=== PATIENT | female | born 1975 | race Caucasian/White ===

== ENCOUNTER 2018-11-20 06:53 | Inpatient (IN) | payer OTHER, SELFPAY ==
[2018-11-07 08:49] VITALS: BMI 31.6
[2018-11-20] VITALS (17 sets, daily range): BP systolic 111–134; BP diastolic 63–89; PULSE 91–107; RESP 7–17; TEMP 36.1–36.6; O2SAT 94–100; BMI 31.6
[2018-11-20] MEDS: LACTATED RINGERS 1,000 ML 42 ML IV (07:30)
--- NOTE | 2018-11-20 08:34 | PM.PREOP ---
Pre-operative Note Interval Note History & Physical reviewed/Exam performed by Physician: Yes Changes to H&P: No
[2018-11-20] MEDS: CLINDAMYCIN 900 MG/50 ML PIGGYBACK 50 MG IV ×2 (08:52→16:55)
--- NOTE | 2018-11-20 09:14 | SUR.OPER ---
Supine on padded OR bed, head on gel donut, towel roll between shoulder blades vertically, arm padded and tucked at side, legs uncrossed, safety belt at thigh, tape over blanket over lower legs, gel pad under heels.
[2018-11-20] MEDS: BUPIVACAINE 0.25% W/ EPI 30 ML VIAL INJ (09:31)
[2018-11-20] MEDS: ONDANSETRON 4 MG/2 ML INJ IV ×2 (11:35→16:29)
[2018-11-20] MEDS: METOCLOPRAMIDE 10 MG/2 ML INJ IV ×2 (11:42→19:34)
--- NOTE | 2018-11-20 11:43 | PM.OP.1 ---
Operative Date/Time/Diagnoses Date of procedure: 11/20/18 Time of procedure: 08:43 Pre-op diagnosis: 1. C5-6, C6-7, C7-T1 spinal stenosis 2. C5-6, C6-7, C7-T1 spondylosis with radiculopathy Post-op diagnosis: same Procedure & Clinicians Procedure: 1. C5-6, C6-7, C7-T1 anterior cervical diskectomy and fusion 2. C5-6, C6-7, C7-T1 anterior interbody cage placement 3. C5-6, C6-7, C7-T1 anterior instrumentation with plate and screw placement in C5, C6, C7, T1 vertebrae 4. Utilization of microsurgical technique and operating microscope Same procedure as scheduled: Yes Indications: Patient has been having chronic neck pain and worsening cervical radiculopathy. Patient failed multiple conservative management with worsening pain weakness and numbness in her upper extremity. Patient has been having difficulty performing activity of daily living. After discussing risks benefits of treatment options, patient elected proceed with surgery. Surgeon: Molly Peterson Automatic Pilot Mechanic: Shu Esqueda Click Yes if Unassisted: No Anesthesia Type: General Operative Notes Closure Type: primary Specimen(s): none sent Prosthetic devices, grafts, tissues, transplants, or devices: Globus extend plate, PEEK cages Applied: catheter Estimated Blood Loss (mL): 50 Blood products transfused: none Procedure in detail: Patient was seen in the preoperative area. Risks and benefits of the surgery was discussed with the patient. Operative consent was obtained and placed in the chart. Patient was then taken to the operative room. Prophylactic antibiotic was given less than 0.5 hr prior to skin incision. General anesthesia was administered. Patient was placed into a supine position on her radiolucent table. Bilateral shoulders were taped down to allow proper C-arm imaging. Anterior cervical area was prepped and draped in a sterile fashion. Time-out was performed at this time. Using lateral C-arm imaging, the level between C5, C6, C7, T1 was identified and marked on patient's neck. A oblique incision from midline towards medial border of sternocleidomastoid muscle was made. The platysma muscle was incised in line with skin incision. Metzenbaum scissor was used to develop the plane between the medial border of sternocleidomastoid d and the strap muscles medially. The carotid sheath and its contents were identified and protected behind the hand-held retractor during the entire case. The plane between the carotid sheath and strap muscles was developed with Metzenbaum scissors. Dissection was made down to the level of the anterior cervical fascia. Longus colli muscle was incised on the anterior aspect of vertebral bodies bilaterally from C5-T1. Spinal needle was placed into the C6-7 disc space and confirmed with lateral C-arm imaging. Using microsurgical technique and operative microscope, anterior cervical diskectomy was performed at C5-6, C6-7, C7-T1 level. This was done by removing the disc material, removing the anterior and posterior osteophytes posterior longitudinal ligaments along with performing bilateral foraminotomies at all 3 levels. Patient was found to have severe central and foraminal stenosis at all 3 levels. Patient's stenosis was fully decompressed after decompression was completed. After the diskectomy was completed, 3 anterior interbody cages were obtained. The cages were packed with globus via cell bone grafting material. One cage each along with the bone grafting material was then packed into the interbody spaces from C5-6, C6-7, C7-T1 with one cage into each interbody level. After the cages were placed, the anterior cervical plate was stabilized to the C5-6, C6-7, C7-T1 vertebrae using 2 screws at each each level. Total 8 screws were placed. After confirming placement of the hardware with AP and lateral C-arm imaging, the screws were locked into the plate using the locking mechanism and torque limiting screwdriver. After the hardware was placed and confirmed with AP and lateral C-arm imaging, the wound was irrigated with sterile normal saline. The platysma muscle and the subcutaneous tissue was closed with 2-0 Vicryl. The skin was closed with 4-0Monocryl and Steri-Strips. Patient tolerated the procedure well. Patient was transferred recovery room in stable condition. There were no complications. Complications: none Condition: stable Disposition: PACU Plan for aftercare: Admit to inpatient hospital
--- NOTE | 2018-11-20 11:50 | P.OP_ITS ---
Operative Date/Time/Diagnoses Date of procedure: 11/20/18 Time of procedure: 08:43 Pre-op diagnosis: 1. C5-6, C6-7, C7-T1 spinal stenosis 2. C5-6, C6-7, C7-T1 spondylosis with radiculopathy Post-op diagnosis: same Procedure & Clinicians Procedure: 1. C5-6, C6-7, C7-T1 anterior cervical diskectomy and fusion 2. C5-6, C6-7, C7-T1 anterior interbody cage placement 3. C5-6, C6-7, C7-T1 anterior instrumentation with plate and screw placement in C5, C6, C7, T1 vertebrae 4. Utilization of microsurgical technique and operating microscope Same procedure as scheduled: Yes Indications: Patient has been having chronic neck pain and worsening cervical radiculopathy. Patient failed multiple conservative management with worsening pain weakness and numbness in her upper extremity. Patient has been having difficulty performing activity of daily living. After discussing risks benefits of treatment options, patient elected proceed with surgery. Surgeon: Molly Peterson Senior Underwriting Assistant: Shu Esqueda Click Yes if Unassisted: No Anesthesia Type: General Operative Notes Closure Type: primary Specimen(s): none sent Prosthetic devices, grafts, tissues, transplants, or devices: Globus extend plate, PEEK cages Applied: catheter Estimated Blood Loss (mL): 50 Blood products transfused: none Procedure in detail: Patient was seen in the preoperative area. Risks and benefits of the surgery was discussed with the patient. Operative consent was obtained and placed in the chart. Patient was then taken to the operative room. Prophylactic antibiotic was given less than 0.5 hr prior to skin incision. General anesthesia was administered. Patient was placed into a supine position on her radiolucent table. Bilateral shoulders were taped down to allow proper C- arm imaging. Anterior cervical area was prepped and draped in a sterile fashion. Time-out was performed at this time. Using lateral C-arm imaging, the level between C5, C6, C7, T1 was identified and marked on patient's neck. A oblique incision from midline towards medial border of sternocleidomastoid muscle was made. The platysma muscle was incised in line with skin incision. Metzenbaum scissor was used to develop the plane between the medial border of sternocleidomastoid d and the strap muscles medially. The carotid sheath and its contents were identified and protected behind the hand- held retractor during the entire case. The plane between the carotid sheath and strap muscles was developed with Metzenbaum scissors. Dissection was made down to the level of the anterior cervical fascia. Longus colli muscle was incised on the anterior aspect of vertebral bodies bilaterally from C5-T1. Spinal needle was placed into the C6-7 disc space and confirmed with lateral C-arm imaging. Using microsurgical technique and operative microscope, anterior cervical diskectomy was performed at C5-6, C6-7, C7-T1 level. This was done by removing the disc material, removing the anterior and posterior osteophytes posterior longitudinal ligaments along with performing bilateral foraminotomies at all 3 levels. Patient was found to have severe central and foraminal stenosis at all 3 levels. Patient's stenosis was fully decompressed after decompression was completed. After the diskectomy was completed, 3 anterior interbody cages were obtained. The cages were packed with globus via cell bone grafting material. One cage each along with the bone grafting material was then packed into the interbody spaces from C5-6, C6-7, C7-T1 with one cage into each interbody level. After the cages were placed, the anterior cervical plate was stabilized to the C5-6, C6-7, C7-T1 vertebrae using 2 screws at each each level. Total 8 screws were placed. After confirming placement of the hardware with AP and lateral C- arm imaging, the screws were locked into the plate using the locking mechanism and torque limiting screwdriver. After the hardware was placed and confirmed with AP and lateral C-arm imaging, the wound was irrigated with sterile normal saline. The platysma muscle and the subcutaneous tissue was closed with 2-0 Vicryl. The skin was closed with 4- 0Monocryl and Steri-Strips. Patient tolerated the procedure well. Patient was transferred recovery room in stable condition. There were no complications. Complications: none Condition: stable Disposition: PACU Plan for aftercare: Admit to inpatient hospital
[2018-11-20] MEDS: HYDROMORPHONE 2 MG INJ 0.5 MG IV ×2 (11:53→12:00)
--- NOTE | 2018-11-20 11:53 | DI.RAD.S_ITS ---
PROCEDURE: XR CERVICAL SPINE 2V OR 3V INDICATIONS: C5-6, C6-7, C7-T1 ACDF TECHNIQUE: A 2 view(s) of the cervical spine were acquired. COMPARISON: None. FINDINGS: Bones: This study is a digital acquisition set of images immediately postoperative to the process of C5-T1 anterior discectomy and plate fusion. Alignment appears normal. Soft tissues: No prevertebral soft tissue swelling. IMPRESSION: Normal alignment established after C5-T1 anterior plate fusion. Dictated by: Jessee Han M.D. on 11/20/2018 at 11:27 Approved by: Jessee Han M.D. on 11/20/2018 at 11:30
[2018-11-20] MEDS: LORazepam 2 MG/ML SYRINGE 0.5 MG IV ×2 (12:11→22:42)
[2018-11-20] MEDS: SODIUM CHLORIDE 0.9% 1,000 ML 100 ML IV (13:13)
--- NOTE | 2018-11-20 14:02 | PT.IPTN ---
Current Diagnoses Other spondylosis with radiculopathy, cervical region (11/20/18) Spinal stenosis, cervical region (11/20/18) Surgery Performed Operation Date: 11/20/18 08:45 Actual Procedures p C5-6,C6-7,T1 ACDF w/Anterior Instru. - Molly Peterson MD Physical Therapy: Pt recently got to floor. Pt is very drowsy at this time and not ready for physical therapy evaluation.
--- NOTE | 2018-11-20 14:29 | PC.NURSE ---
Addendum entered by Tamy Jean-Baptiste R.N. 11/20/18 14:38: 100 ml/hr Normal saline. Original Note: Recieved patient from PACU at 1250. Patient is groggy but arousable. Post operative dressing assessed. Dressing is clean, dry and intact. Soft cervical collar in place. Pt. is calm, comfortable and sleeping. Vitals are stable. IV fluids administered at 125ml/hr per order.
[2018-11-20] MEDS: OXYCODONE IR 5 MG TABLET 10 MG PO ×2 (19:39→22:28)
[2018-11-20] MEDS: NORTRIPTYLINE HCL 25 MG CAPSULE 50 MG PO (20:45)
[2018-11-20] MEDS: GABAPENTIN 300 MG CAPSULE PO (20:45)
[2018-11-20] MEDS: DOCUSATE 100 MG CAPSULE PO (20:45)
--- NOTE | 2018-11-20 20:59 | PC.NURSE ---
Addendum entered by Nani Chavez R.N. 11/20/18 23:26: pt vomited and found vistaril in her emesis. administered IV ativan per orders. Original Note: A&OX3. 99%RA.Pt had some ongoing nausea. administered antiemetic meds. pt felt better after reglan. pt's total emesis was 875cc. pt did not eat dinner. IVF infusing. Pain controlled with PO percolone. SBA to the BSC. call light in reach.
[2018-11-20] MEDS: hydrOXYzine pamoate 25 MG CAPSULE PO (22:30)
[2018-11-21] VITALS: BP 136/75; PULSE 101; RESP 14; TEMP 36.3; O2SAT 99
[2018-11-21] MEDS: SODIUM CHLORIDE 0.9% 1,000 ML 100 ML IV (00:10)
[2018-11-21] MEDS: CLINDAMYCIN 900 MG/50 ML PIGGYBACK 50 MG IV (00:30)
[2018-11-21] MEDS: hydrOXYzine pamoate 25 MG CAPSULE PO ×2 (03:00→08:43)
[2018-11-21] MEDS: OXYCODONE IR 5 MG TABLET 10 MG PO ×2 (03:00→08:43)
--- NOTE | 2018-11-21 03:29 | PC.NURSE ---
Patient is alert and oriented. Breath sounds CTA with RA sat of 98%. HRR but slightly tachy low 100's. Denies nausea. BT present and has passed flatus. Denies dysuria, frequency or urgency. Able to turn self in bed. Wearing soft cervical collar and dressing to anterior neck is CDI. Denies any difficulty swallowing. CMS intact. Declines use of SCD's. Fall risk score is low. Spouse rooming in.
[2018-11-21 04:10] VITALS: BP 134/73; PULSE 98; RESP 16; TEMP 36.4; O2SAT 96
--- NOTE | 2018-11-21 07:27 | PM.DS.1 ---
History of Present Illness Date Patient Seen: 11/21/18 Chief complaint: [id number] Ant Cerv Fusion Narrative: Patient seen bedside s/p C5-6, C6-7, C7-T1 anterior cervical diskectomy and fusion POD #1. Patient is doing well, pain is currently at a 3. She did have significant nausea yesterday but it seems to have resolved today. This is likely secondary to narcotics/anesthesia. She has not worked with physical therapy today. Her throat is mildly sore but is improving. She is able to eat today. Discharge Providers Date of admission: 11/20/18 06:53 Discharge Date: 11/22/18 Primary care physician: Estela Cash MD Consults: 11/20/18 12:58 Consult to Occupational Therapy Evaluate & Treat Comment: Physician Instructions: Evaluate and treat Consult to Physical Therapy Evaluate & Treat Comment: Physician Instructions: Evaluate and Treat Discharge provider: Elizabeth Fisher PA-C Summary Discharge Diagnosis: 1. C5-6, C6-7, C7-T1 spinal stenosis 2. C5-6, C6-7, C7-T1 spondylosis with radiculopathy Hospital Course: Patient was admitted to the hospital on 11/20/18 status post C5-6, C6-7, C7-T1 anterior cervical diskectomy and fusion with Dr. Peterson. Patient tolerated the procedure well with no major complications. Patient was transition to the acute care floor where she was placed in the standard cervical fusion pathway and protocol. She was seen by Physical therapy and recommended for discharge home. She was stable and ready for discharge on 11/21/2018. Status at Discharge Cognitive/behavioral status at discharge: at baseline, oriented Functional status at discharge: independent ambulation Overall status at discharge: patient is progressing back to baseline Time Spent with Patient Less than 30 minutes Exam Vital Signs (past 8 hours): - 11/21/18 00:00 11/21/18 04:10 Temperature 97.3 F L 97.6 F Pulse Rate 101 H 98 H Respiratory Rate 14 16 Blood Pressure 136/75 134/73 Pulse Oximetry 99 96 Oxygen Delivery Method Room Air Oxygen Flow Rate 0 Narrative Exam Narrative: Well-developed, well-nourished, no acute distress. Alert and oriented to person, place, and time. Dressing on anterior neck is clean, dry, and intact with no signs of drainage. Minimal erythema and generalized swelling around the surgical site. Neurovascularly intact in bilateral upper extremities intact range of motion. Discharge Plan Discharge Plan Patient Disposition: Home Discharge Med Rec/Prescriptions Prescriptions: New hydroxyzine pamoate 25 mg Capsule 25 mg PO Q4HR PRN (Reason: Nausea And Vomiting) Qty: 50 RF: 0 oxycodone 5 mg tablet 5 mg PO Q4-6H PRN (Reason: pain) Qty: 40 RF: 0 promethazine [Phenergan] 25 mg suppository 25 mg ME Q6H PRN (Reason: nausea and vomiting) Qty: 12 RF: 0 Continued cyclobenzaprine 10 mg Tablet 1 tab PO DAILY RF: 0 ranitidine HCl [Zantac] 150 mg Tablet 150 mg PO DAILY RF: 0 gabapentin 300 mg Capsule 300 mg PO BEDTIME RF: 0 nortriptyline 50 mg Capsule 50 mg PO BEDTIME RF: 0 Discontinued ibuprofen 800 mg Tablet 800 mg PO TID RF: 0 Follow up/Referrals: Estela Cash MD [Primary Care Provider] - Provider Discharge Instructions Diet: Diet as Tolerated Diet comment: May want to eat soft foods until throat is no longer sore Activity: Weightbearing as tolerated, wear collar for comfort. Avoid excessive twisting/nodding of neck Cold/Heat Therapy: Cool/cold fluids and foods may feel soothing to your throat. May use ice pack to back of neck. Skin/Wound/Dressing Care Report to your healthcare provider any signs of infection, such as:: chills, fever, night sweats, increased pain, unusual drainage and unusual redness Dressing: Keep dressing clean, dry, and intact. May shower with it in place but no soaking. Visit Report/Discharge Packet Instructions: DI for Constipation, DI for Anterior Cervical Discectomy and Fusion Stand Alone Forms: Surgery Discharge Discharge Data Primary Care Provider: Estela Cash Attending Provider: Molly Peterson Admit Date/Time: 11/20/18 06:53 Discharges patient from system. Discharge Date/Time: 11/21/18 09:40 Quality VTE Deep Vein Thrombosis/Pulmonary Embolism Present on Admission: No
[2018-11-21 08:00] VITALS: BP 132/81; PULSE 97; RESP 16; TEMP 36.3; O2SAT 100
[2018-11-21] MEDS: DOCUSATE 100 MG CAPSULE PO (08:43)
--- NOTE | 2018-11-21 09:31 | PC.NURSE ---
Pending discharge: No nausea today, was able to tolerate diet w/out problems. Discussed diet in general, use of cool/cold fluids and foods, softer foods. No problems seen with swallow but does feel sore. Seen by PT and they have given final instructions. Seen by OT and given their final instructions. Reviewed wound care and given 1 dressing if needed until they can get their own. RX's given. Reviewed instructions for neck surgery and use of cervial collar. Questions answered. Denies any concerns. Spouse present at time of teaching. Pt d/c home via auto w/spouse.
--- NOTE | 2018-11-21 09:32 | OT.IP.EVAL ---
Current Diagnoses Other spondylosis with radiculopathy, cervical region (11/20/18) Spinal stenosis, cervical region (11/20/18) Surgery Performed Operation Date: 11/20/18 08:45 Actual Procedures p C5-6,C6-7,T1 ACDF w/Anterior Instru. - Molly Peterson MD Past Medical History (Last Updated 11/13/18 @ 14:11 by Simran Cook RN) Acid reflux (Acute) Anxiety (Acute) Arthritis (Acute) Chronic neck and back pain (Acute) Depression (Acute) Easy bruisability (Acute) Elective (Acute) HTN (hypertension) (Acute) Migraines (Acute) Neck pain (Acute) Numbness and tingling (Acute) Panic attacks (Acute) Sciatica (Acute) Occupational Therapy Inpatient Evaluation/Re-Eval M1 PT/OT-IP Prior Functional Status Start: 11/21/18 15:26 Freq: NEEDED Status: Active Protocol: Document 11/21/18 09:32 PJM (Rec: 11/21/18 15:38 PJM [id number]) Medical Review Prior Functional Status Medical History Reviewed Yes Diet/Fluid Consistency Regular Communication WNL Mobility and Gait Community ambulator, driving, 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 Activities of Daily Living and IADL's Pt independent with all self care, IADLS but limited by pain and dropping objects out of dominant R hand. Social History Household Members spouse children Living Arrangements House Number of Floors (Floors) One Floor Number of Stairs To Enter/Railing? 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 21 yr old daughter is on spring break this week and can assist PRN. Supportive can assist before and after work. M2 OT-IP Current Condition Start: 11/21/18 15:26 Freq: Status: Active Protocol: Document 11/21/18 09:32 PJM (Rec: 11/21/18 15:38 PJM [email or web address]) Occupational Therapy Current Condition Current Condition Evaluation Date 11/21/18 Treatment Diagnosis decreased self care s/p C5-T1 ACDF Post Operative Precautions Cervical Spine Precautions Soft Collar for Comfort Soft Collar at all Times Rigid Collar No Heavy Lifting Log Roll M3 OT- IP Subjective and Pain Start: 11/21/18 15:26 Freq: Status: Active Protocol: Document 11/21/18 09:32 PJM (Rec: 11/21/18 15:38 PJ [email or web address]) OT- Subjective Occupational Therapy Visit Type Type Initial Evaluation Visit Start Time 09:18 Visit Stop Time 09:32 Notes Pt dressed and ready for d/c when therapist arrived. here for education. Occupational Therapy Visit Comments Patient Comments The numbness in my R hand is gone now. Patient/Caregiver Goals to return to work in 6 weeks OT Pain Assessment Pain When Pain Assessed After Treatment Pain Present Pain Present Pain Reported Location neck Intensity 2 Scale Used Numeric (1 - 10) Description Aching Acute M4 OT- IP ADL's Start: 11/21/18 15:26 Freq: Status: Active Protocol: Document 11/21/18 09:32 PJM (Rec: 11/21/18 15:38 PJ [email or web address]) OT [id number] General Evaluation Self-Feeding Ability Independent Comments OT Self-Feeding Comments pt denies any swallowing deficits OT ADL-Grooming General Evaluation Grooming Ability Independent Comments OT Grooming Comments provided education re: body mechanics OT ADL-Oral Care General Eval Oral Care Ability Independent Standby Assistance Devices Oral Care Devices Toothbrush Comments Oral Care Comments provided education re: body mechanics OT ADL-Dressing Comments OT Dressing Comments assisted pt with dressing prior to therapist's arrival; provided education re : body mechanics OT ADL-Toileting General Evaluation Toileting Ability Independent OT ADL-Bathing Comments OT Bathing Comments pt declines to shower here; provided education re: C spine precautions, body mechanics and methods to keep incision dry M5 OT- IP IADL's Start: 11/21/18 15:26 Freq: Status: Active Protocol: Document 11/21/18 09:32 PJM (Rec: 11/21/18 15:38 PJ [email or web address]) OT-Instrumental Activities of Daily Living Deficits IADL Deficits Identified Deficits Home Safety Awareness Awareness of Need for Assistance at Home Good Awareness Ability to Problem Solve Emergency Able to Problem Solve Situations Medication Management Medication Management No Deficits Identified Money Management Money Management No Deficits Identified Meal Preparation Meal Preparation Caregiver Provides Assist Meal Preparation Comments family to assist until pt able Floor Surfacer Floor Surfacer Caregiver Provides Assist Floor Surfacer Comments family to assist until pt able Driving Driving Caregiver Provides Assist Driving Comments family to assist until pt able M6 OT- IP Functional Cognition Start: 11/21/18 15:26 Freq: Status: Active Protocol: Document 11/21/18 09:32 PJM (Rec: 11/21/18 15:38 PJ [id number]) Cognitive Factors Limiting Selfcare Function Cognitive Ability Level of Alertness Alert Patient Orientation Name Age Birthday Month Date Year Day of Week Place Situation Attention Span Ability Capable of Focused Attention Capable of Sustained Attention Ability to Follow Commands Able to Follow Multi-Step Commands Memory Description No Deficits Noted Safety Awareness No Deficits Noted Problem Solving Ability No deficits Noted Cognitive Comments Cognitive Assessment Comments WNL OT- Vision and Hearing OT- Hearing Assessment OT- Hearing Assessment WFL OT- Vision Assessment Visual Acuity WFL Vision Assessment Comments pt denies any recent changes M7 OT- IP Mobility and Balance Start: 11/21/18 15:26 Freq: Status: Active Protocol: Document 11/21/18 09:32 PJM (Rec: 11/21/18 15:38 [facility] [email or web address]) OT- Bed Mobility Assessment Rolling Type of Rolling Roll to Left Level of Assistance Independent Supine to Sit Supine to Sit Assist Independent Scooting Scooting to Edge of Bed Independent OT-Transfer Assessment Sit to and From Stand Sit to and from Stand Independent Transfers Transfer Ability Independent Comments Mobility Comments pt cleared for indep mobility by P.T. OT- Gait Assessment Gait Gait Assistance Required: Independent Comments Gait Ability Comments pt cleared for indep mobility by P.T. OT- Balance Assessment Sitting Balance and Reactions Static Sitting Balance Ability Good Dynamic Sitting Balance Ability Good Standing Balance and Reactions Static Standing Balance Ability Good Dynamic Standing Balance Ability Good M8 OT- IP Objective Assessments Start: 11/21/18 15:26 Freq: Status: Active Protocol: Document 11/21/18 09:32 PJM (Rec: 11/21/18 15:38 [facility] [email or web address]) OT Gross Range of Motion Upper Extremity Range of Motion Assessment Within Functional Limits ROM Impairments shoulder end ranges NT due to recent spine surgery OT Strength Upper Extremity Strength Assessment Within Functional Limits Comments Strength Comments 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 slightly weaker than L but WFL, no significant instrinsic weakness noted OT- Coordination Assessment Comments Coordination Comments WFL for self care; pt reports improved sensation in R hand post surgery OT-Muscle Tone Assessment Muscle Tone WNL Yes OT Sensation Assessment Comments Summary Comments Pt reports numbness in R IF, MF, RF prior to surgery ( especially in middle finger) now resolved Edema Edema Absent M9 OT- IP Assessment and Plan Start: 11/21/18 15:26 Freq: Status: Active Protocol: Document 11/21/18 09:32 PJM (Rec: 11/21/18 15:38 PJM [email or web address]) OT Summary Assessment and Plan Potential Rehabilitation Potential Excellent Analytic Complexity at Evaluation Low Summary Progress Towards Goals Safe For Discharge Goals Met Assessment Summary Low complexity OT assessment completed on this 44 yr old woman admitted for elective C5-T1 ACDF. Pt moving very well and cleared for d/c when therapist arrived. Brief education provided re: C spine precautions and adapted self care techniques including methods to keep incision dry. Pt and verbalize understanding. Pt will have 24 hr family assist for first week after d/c. No further OT services needed. Frequency of Treatment Frequency Of Treatment Discharge Discharge Recommendations OT Discharge Recommendations Home with Assistance
--- NOTE | 2018-11-21 09:43 | PT.IIE ---
Current Diagnoses Other spondylosis with radiculopathy, cervical region (11/20/18) Spinal stenosis, cervical region (11/20/18) Surgery Performed Operation Date: 11/20/18 08:45 Actual Procedures p C5-6,C6-7,T1 ACDF w/Anterior Instru. - Molly Peterson MD Medical History (Last Updated 11/13/18 @ 14:11 by Simran Cook RN) Acid reflux (Acute) Anxiety (Acute) Arthritis (Acute) Chronic neck and back pain (Acute) Depression (Acute) Easy bruisability (Acute) Elective (Acute) HTN (hypertension) (Acute) Migraines (Acute) Neck pain (Acute) Numbness and tingling (Acute) Panic attacks (Acute) Sciatica (Acute) Physical Therapy Inpatient Evaluation/Re-Eval M1 PT/OT-IP Prior Functional Status Start: 11/20/18 13:51 Freq: NEEDED Status: Active Protocol: Document 11/21/18 08:46 AMB (Rec: 11/21/18 08:59 AMB [email or web address]) Medical Review Prior Functional Status Medical History Reviewed Yes Mobility and Gait Community ambulator, driving, 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 PT-IP Current Condition Start: 11/20/18 13:51 Freq: NEEDED Status: Active Protocol: Document 11/21/18 08:46 AMB (Rec: 11/21/18 08:59 AMB [email or web address]) Physical Therapy Current Condition Current Condition Evaluation Date 11/21/18 Treatment Diagnosis C5-6, C6-7, C7-T1 anterior fusion Onset Date 11/20/18 Precautions Cervical Spine Precautions Soft Collar for Comfort No Heavy Lifting Log Roll M3 PT-IP Subjective Start: 11/20/18 13:51 Freq: NEEDED Status: Active Protocol: Document 11/21/18 08:46 AMB (Rec: 11/21/18 08:59 AMB [email or web address]) Subjective Physical Therapy Visit Type Type Initial Evaluation Visit Start Time 08:10 Visit Stop Time 08:30 Total Visit Minutes 15 Physical Therapy Visit Comments Patient Comments Pt is feeling well, yesterday not as much, but much better this morning Therapy Pain Assessment Pain When Pain Assessed At Rest Pain Present Pain Present Pain Reported Location neck Intensity 3 Scale Used Numeric (1 - 10) M4 PT-IP Mobility and Gait Start: 11/20/18 13:51 Freq: NEEDED Status: Active Protocol: Document 11/21/18 08:46 AMB (Rec: 11/21/18 08:59 AMB [email or web address]) PT-Bed Mobility Assessment Rolling Type of Rolling Log Rolling Level of Assist Standby Assistance Supine to Sit Supine to Sit Standby Assistance Sit to Supine Sit to Supine Standby Assistance PT-Transfer Assessment Sit to and From Stand Sit to and from Stand Independent Equipment Transfer Assistive Device None Transfers Transfer Destination Bed Chair Transfer Technique Stand Step Pivot Transfer Ability Level of Assist Independent Gait Assessment Gait Gait Assistance Required: Standby Assistance Distance (Feet) 500 Assistive Devices Assistive Device None Gait Deviations General Gait Pattern Within Normal Limits Comments Gait Comments WFL Stair Climbing Assessment Evaluation Level of Assist On Stairs Standby Assistance Devices Stair Climbing Assistive Devices Left Railing Right Railing Technique/Endurance Stair Climbing Direction Ascend and Descend Stair Climbing Technique Step Over Step Number of Steps Climbed 3 Query Text: Stair Climbing Set # Repetitions (reps) 1 PT-Balance Assessment Standing Balance and Reactions Static Standing Balance Ability Normal Dynamic Standing Balance Ability Normal Balance Tests Tandem Standing eyes closed 10 sec M5 PT-IP Objective Assessments Start: 11/20/18 13:51 Freq: NEEDED Status: Active Protocol: Document 11/21/18 08:46 AMB (Rec: 11/21/18 08:59 AMB [email or web address]) Orientation Orientation/Cognition Level of Alertness Alert Gross Range of Motion Upper Extremity ROM Assessment Within Functional Limits Impairments Pt reports resolution of R arm numbness Strength Lower Extremity Strength Assessment Within Functional Limits Comments Strength Comments UE strength not formally tested, pt scheduled for outpatient PT M6 PT-IP Treatment Start: 11/20/18 13:51 Freq: NEEDED Status: Active Protocol: Document 11/21/18 08:46 AMB (Rec: 11/21/18 08:59 AMB [email or web address]) Physical Therapy Treatment Education Education Provided Precautions Post-Op Packet Safety M7 PT-IP Assessment and Plan Start: 11/20/18 13:51 Freq: NEEDED Status: Active Protocol: Document 11/21/18 08:46 AMB (Rec: 11/21/18 08:59 AMB [email or web address]) PT Summary Assessment and Plan Potential Rehabilitation Potential Excellent Status of Condition at Evaluation Stable Summary Impairments Pain ROM Strength Activity Tolerance Assessment Summary Pt is doing well after her cervical fusion. She will have her daughter home with her for help with ADLS/ cooking. She was independent with gait/ stairs. Needed cueing for log roll to get out of bed. Planning on outpatient PT. Discharge from PT, able to d/c home when medically stable. Goals Bed Mobility Goal Independent Transfer Goal Independent Gait Goal Independent Gait Distance 200 Days to Meet Goals 1 Frequency of Treatment Frequency Of Treatment Discharge Treatment Plan Physical Therapy Treatment Plan Bed Mobility Training Gait Training Therapeutic Exercise Recommendations To Nursing Amount of Assist Needed Standby Assistance Discharge Recommendations PT Discharge Recommendations Home Outpatient PT
--- NOTE | 2018-11-21 11:03 | CM.DANOTE ---
DCP: Case received, EMR reviewed and met with patient. Introduced self and role. DCP template completed with information currently available. Patient is a 43 year old male who admitted yesterday morning to the care of the surgical team. PCP: Dr. Cash. Payer: confirmed: [facility]. Patient came to hospital for surgical procedure. She had C5-6, C6-7 Cervical Diskectomy Fusion. Met with patient, alert and oriented, in room. Patient wearing neck brace. She is independent. She stated that she already has outpatient physical therapy set up with [facility]. P: Patient is discharging home today, after she works with physical therapy. Debora Macedo RN/Analytical Data Miner
== END 2018-11-21 09:40 | disposition home or self-care (01) | DRG 473 ==
PROVIDERS: Admitting Provider Orthopaedic Surgery Orthopaedic Surgery of the Spine; PCP Internal Medicine; Visit Provider Orthopaedic Surgery Orthopaedic Surgery of the Spine
PROC: 0RG20A0 Fusion of 2 or more Cervical Vertebral Joints with Interbody Fusion Device, Anterior Approach, Anterior Column, Open Approach (ICD-10-PCS; principal; 2018-11-20 08:45)
DX: M48.02 Spinal stenosis, cervical region (principal); M47.22 Other spondylosis with radiculopathy, cervical region; R11.0 Nausea
CPT/HCPCS: 72040; 76000; 97161; 97165; C1776; J0360; J1100; J1170; J2060; J2250; J2405; J2704; J2765; J3010